=== PATIENT | male | born 1965 | race Caucasian/White ===

== ENCOUNTER → 2019-05-05 10:27 | Outpatient (CLI) | payer OTHER, SELFPAY ==
--- NOTE | 2019-05-05 | DI.MRI.S_ITS ---
PROCEDURE: MR LUMBAR SPINE WO CON INDICATIONS: low back pain TECHNIQUE: Noncontrast sagittal T1 spin echo and T2 fast echo, sagittal STIR, axial T1 and T2 fast spin echo through the lumbar spine. In cases with scoliosis, additional coronal T2 fast spin echo may be performed. COMPARISON: [facility] [place], CR, XR LUMBAR SPINE 2 OR 3 VIEWS, 04/24/2019, 8:52. FINDINGS: Image quality: Excellent. Alignment and Curvature: There is normal bony alignment. Bones: Postsurgical changes compatible prior left L5-S1 laminotomy. Mild reactive endplate changes noted adjacent to the L2-L3, L4-L5 and L5-S1 discs. No acute vertebral body compression fractures. Spinal Cord: Conus medullaris terminates at the L2 level. Visualized cord demonstrates normal signal and size. Paraspinous Soft Tissues: No paravertebral masses. L1-L2: Normal appearance. L2-L3: Loss of disc signal. Mild, diffuse disc bulge. Mild bilateral facet hypertrophy. Mild narrowing of the central canal. Mild bilateral neural foraminal narrowing. No neural compression. L3-L4: Loss of disc signal. Mild, diffuse disc bulge. Mild bilateral facet hypertrophy. Mild narrowing of the central canal. Mild to moderate bilateral neural foraminal narrowing. No neural compression. Fissures noted in the disc annulus. L4-L5: Loss of disc signal and slight loss of disc height. Mild to moderate diffuse disc bulge. Mild bilateral facet hypertrophy. Mild to moderate narrowing of the central canal. Mild to moderate bilateral neural foraminal narrowing. No neural compression Fissures are noted in the posterior disc annulus. L5-S1: Loss of disc signal and height. Mild, diffuse disc bulge. Mild bilateral facet hypertrophy. Small 5 mm left facet synovial cyst. No central stenosis. Mild bilateral neural foraminal narrowing. No neural compression. Fissure noted in the posterior left annulus. IMPRESSION: 1. Postsurgical changes. 2. Multilevel degenerative disease 3. Multilevel facet arthropathy. 4. Mild to moderate L4-L5 central canal narrowing. Mild L2-L3 and L3-L4 central canal narrowing. 5. Mild to moderate bilateral L3-L4 and L4-L5 neural foraminal narrowing. Mild bilateral L2-L3 and L5-S1 neural foraminal narrowing. 6. No neural compression. Dictated by: Miladis Negro MD, PhD on 05/07/2019 at 11:27 Approved by: Miladis Negro MD, PhD on 05/07/2019 at 11:54
== END ==
PROVIDERS: Visit Provider Orthopaedic Surgery Orthopaedic Surgery of the Spine
DX: M54.5 Low back pain (principal); M51.36 Other intervertebral disc degeneration, lumbar region; M51.37 Other intervertebral disc degeneration, lumbosacral region; M47.816 Spondylosis without myelopathy or radiculopathy, lumbar region; M47.817 Spondylosis without myelopathy or radiculopathy, lumbosacral region; M48.061 Spinal stenosis, lumbar region without neurogenic claudication; M48.07 Spinal stenosis, lumbosacral region
CPT/HCPCS: 72148

== ENCOUNTER → 2019-06-04 12:11 | Outpatient (CLI) | payer OTHER, SELFPAY ==
[2019-06-04 13:47] LABS: Add Manual Diff / Slide Review NO; Basophils Absolute Auto 100 /uL (0-100); Basophils Percent Auto 0.6 % (0-2); Eosinophils Absolute Auto 200 /uL (0-450); Eosinophils Percent Auto 2.2 % (2-4); Hematocrit 45.7 % (41-53); Hemoglobin 15.7 g/dL (13.5-17.5); Lymphocytes Absolute Auto 3200 /uL (1100-4500); Lymphocytes Percent Auto 34.1 % (25-40); Mean Corpuscular HGB Conc 34.5 % (30-36); Mean Corpuscular Hemoglobin 30.4 PG (26-34); Mean Corpuscular Volume 88.2 fL (80-100); Monocytes Absolute Auto 700 /uL (0-900); Monocytes Percent Auto 7.7 % (3-14); Neutrophils Absolute Auto 5100 /uL (1500-7000); Neutrophils Percent Auto 55.4 % (50-75); Platelet Count 299 X10^3/uL (150-400); Red Blood Cell Count 5.18 X10^6/uL (4.5-5.9); White Blood Cell Count 9.3 X10^3/uL (4.5-11.0)
[2019-06-04 13:56] LABS: BUN Creatinine Ratio 13.3 (6-22); Blood Urea Nitrogen 12 mg/dL (9-20); Calcium 9.7 mg/dL (8.4-10.2); Carbon Dioxide 24 mmol/L (22-32); Chloride 104 mmol/L (98-107); Estimated Glomerular Filt Rate > 60.0 mL/min (>60); Glucose 110 mg/dL (70-100); HEMOLYSIS < 15 (0-50); Potassium 4.1 mmol/L (3.4-5.1); Sodium 139 mmol/L (137-145)
== END ==
PROVIDERS: PCP Internal Medicine; Visit Provider Orthopaedic Surgery Orthopaedic Surgery of the Spine
DX: Z01.812 Encounter for preprocedural laboratory examination (principal)
CPT/HCPCS: 36415; 80048; 85025; 93005

== ENCOUNTER 2019-07-18 07:25 | Inpatient (IN) | payer OTHER, MEDICAID, SELFPAY ==
[2019-07-04 09:55] VITALS: BMI 29.5
[2019-07-18] VITALS (14 sets, daily range): BP systolic 108–162; BP diastolic 62–99; PULSE 16–94; RESP 12–20; TEMP 36.4–37.1; O2SAT 94–100; BMI 29.5
--- NOTE | 2019-07-18 | DI.RAD.S_ITS ---
PROCEDURE: XR LUMBAR SPINE 2-3V INDICATIONS: L4-5, L5-S1 TLIF TECHNIQUE: 2 views of the lumbar spine were acquired. COMPARISON: [facility], MR, MR LUMBAR SPINE WO CON, 05/05/2019, 11:07. [facility], CR, XR LUMBAR SPINE 2 OR 3 VIEWS, 04/24/2019, 8:52. FINDINGS: 2 intraoperative fluoroscopy images demonstrate discectomy, laminectomy and posterior fusion at L4-L5 and L5-S1. Surgical hardware are in expected position. IMPRESSION: Discectomy, laminectomy and posterior fusion at L4-L5 and L5-S1. Dictated by: Luc Sandhu M.D. on 07/18/2019 at 13:31 Approved by: Luc Sandhu M.D. on 07/18/2019 at 13:33
[2019-07-18] MEDS: LACTATED RINGERS 1,000 ML 42 ML IV (08:14)
[2019-07-18] MEDS: CEFAZOLIN 2 GM/100 ML FROZ.PIGGY IV ×3 (08:47→20:16)
--- NOTE | 2019-07-18 09:50 | SUR.OPER ---
Prone on spine table, head in foam head support, padded chest and pelvic supports, gel pad at knees, lower legs supported by pillows; nipples, genitalia and toes free of pressure, arms secured on foam padded arm boards at <90 degrees abduction. Tape over blanket at thigh secured to table.
[2019-07-18] MEDS: BUPIVACAINE LIPOSOME 266 MG/20 ML VIAL INJ (10:01)
[2019-07-18] MEDS: BUPIVACAINE 0.25% W/ EPI (PF) 10 ML VIAL 20 ML INJ (10:02)
[2019-07-18] MEDS: ACETAMINOPHEN IV 1,000 MG/100 ML VIAL 400 MG IV (12:12)
--- NOTE | 2019-07-18 12:50 | PM.OP.1 ---
Operative Date/Time/Diagnoses Date of procedure: 07/18/19 Time of procedure: 08:50 Pre-op diagnosis: 1. L4-5, L5-S1 spinal stenosis with hx of lainectomies 2. L4-5, L5-S1 spondylosis with radiculopathy Post-op diagnosis: same Procedure & Clinicians Procedure: 1. L4-5, L5-S1 Postero-lateral and posterior interbody fusion 2. L4-5, L5-S1 interbody cage placement. 3. L4-5, L5-S1 decompressive laminectomy with bilateral facetecomies 4. L4-5, L5-S1 Posterior segmental instrumentation 5. [place] of bone marrow from iliac crest 6. Utilization of microsurgical technique and operating microscope Same procedure as scheduled: Yes Indications: Patient has been having chronic back pain and worsening lumbar radiculopathy. Patient failed multiple conservative management with worsening pain weakness and numbness in her lower extremity. Patient has been having difficulty performing activity of daily living. After discussing risks benefits of treatment options, patient elected proceed with surgery. Surgeon: Hans Molina Employee Communications Specialist: Cherie Mitchell Click Yes if Unassisted: No Anesthesia Type: General Operative Notes Closure Type: primary Specimen(s): none sent Prosthetic devices, grafts, tissues, transplants, or devices: Globus revolve screws, Rise cages Applied: catheter Estimated Blood Loss (mL): 150 Blood products transfused: none Procedure in detail: Patient was seen in the preoperative area. Risks and benefits of the surgery was discussed with the patient. Informed consent was obtained from the patient and placed in the chart. Surgical site was marked. Patient was taken to the operative room. General anesthesia was administered. Prophylactic antibiotic was given to the patient less than 30 min before the incision was made. Patient was placed into a prone position on the Sheng table. Patient's back was then prepped and draped in the sterile fashion. Time-out was performed at this time. Using AP and lateral C-arm imaging the interval between L4-S1 was identified and marked on patient's back. A 2 inch incision 2 in from midline was made on the left side first. The fascia was incised in line with skin incision. Globus MARS retractors was placed inside the incision and docked onto the L4 and L5 lamina. Using microsurgical technique and operating microscope, a L4 and L5 laminectomy and L4-5 L5-S1 facetectomy was performed using a Kerrison rongeur. During the process of decompression more than 75% of bilateral L4-5 L5-S1 facets were removed in order to decompress the spinal canal and the lateral recess. The L4-5 L5-S1 level was grossly unstable after the decompression was completed and requiring the fusion procedure. Patient was found have significant amount of epidural scarring which was carefully resected along with osteophytes herniated disc in the process of decompression. After the laminectomy facetectomy and debridement of scar tissue was completed the epidural space at L4-5 L5-S1 was fully decompressed. The disc space at L4-5, L5-S1 was identified. And a total diskectomy was performed at L4-5, L5-S1 level. The endplates were decorticated using a rasp and shaver. The total diskectomy and decortication was performed at L4-5, L5-S1 level in order to to accomplish a L4-5, L5-S1 fusion. The local bone from the laminectomy and facetectomy was saved for local bone grafting. After the total diskectomy and decortication was completed, Bio4 bone graft material was combined with local bone that was harvested earlier. At this time, a separate skin is incision was made over the iliac crest. A Jamshidi needle was inserted into the iliac crest through a separate skin incision. 5 cc of bone marrow aspiration was obtained through the separate skin incision using a Jamshidi needle from the iliac crest. The bone marrow aspiration was combined with local bone and the Bio4 bone grafting material. The bone grafting material was placed into the L4-5, L5-S1 interbody space along with two cages, one expandable cage at each level. The cages were expanded to their maximum height using the torque limiting screwdriver. At this time a mirror image incision was made on the right side. The fascia was incised in line with the skin incision. Globus MARS retractor was inserted and docked onto the L4-5, L5-S1 posterolateral gutter. Using the power drill, posterior-lateral decortication was performed at L4-5, L5-S1 level until bleeding cortical bone was identified. The remaining bone grafting material was placed into the L4-5 L5-S1 posterior lateral gutter he order to accomplish posterolateral fusion at the L4-5 L5-S1 levels. Using the double C-arm technique, pedicle screws were placed into the L4, L5, S1 pedicles bilaterally. This was done by placing the Jamshidi needle into the pedicles, then placing the guidewires over the Jamshidi needle, and finally placing the cannulated screws over the guidewires bilaterally. After the pedicle screws were placed, 2 titanium rods was locked into the heads of the pedicle screws using locking caps and torque limiting screwdriver. Total 6 pedicles screws were placed. After all the hardware was placed, and confirmed with AP and lateral C-arm imaging, the wound was then irrigated with sterile normal saline and packed with Ray-Sonia gauze for 3 min to accomplish hemostasis. After the gauze was removed the deep fascia was closed with #1 Vicryl suture. The subcutaneous layer was closed with 2-0 Vicryl. The skin was closed with skin delmis. Patient tolerated the procedure well. There were no complications.
--- NOTE | 2019-07-18 12:56 | PM.PREOP ---
Pre-operative Note Interval Note History & Physical reviewed/Exam performed by Physician: Yes Changes to H&P: No
[2019-07-18] MEDS: LORazepam 2 MG/ML INJ 0.5 MG IV (13:18)
--- NOTE | 2019-07-18 13:34 | SUR.PHASEI ---
Patient arrived in PACU with an oral airway. Placed [address] Joiner at bedside gave additional IV pain medication.
[2019-07-18] MEDS: HYDROMORPHONE 2 MG INJ IV (13:40)
--- NOTE | 2019-07-18 13:42 | SUR.PHASEI ---
Patient crying and c\o 03/24 pain. Gave additional pain medication.
--- NOTE | 2019-07-18 15:04 | PT.IIE ---
Current Diagnoses Other spondylosis with radiculopathy, lumbosacral region (07/18/19) Spinal stenosis, lumbar region without neurogenic claudication (07/18/19) Postlaminectomy syndrome, not elsewhere classified (07/18/19) Surgery Performed Operation Date: 07/18/19 08:45 Actual Procedures p L4-5, L5-S1 TLIF w/ posterior instrumentation - Hans Molina MD Surgical History (Last Updated 07/04/19 @ 10:10 by Gina Elizalde RN) H/O abdominal surgery (Acute) History of lumbar surgery (Acute) Medical History (Last Updated 07/04/19 @ 10:10 by Gina Elizalde RN) Arthritis (Acute) Edema (Acute) HTN (hypertension) (Acute) Numbness and tingling (Acute) Sciatica (Acute) Physical Therapy Inpatient Evaluation/Re-Eval M1 PT/OT-IP Prior Functional Status Start: 07/18/19 15:57 Freq: NEEDED Status: Active Protocol: Document 07/18/19 15:04 AB (Rec: 07/18/19 16:16 AB [id number]) Medical Review Prior Functional Status Medical History Reviewed Yes Communication able to make needs known Mobility and Gait pt stated that he is independent with all mobilities and ambulation usually without AD but occasionally uses a SPC depending on pain level. Social History Household Members spouse,family Living Arrangements House Number of Floors (Floors) One Floor Number of Stairs To Enter/Railing? 1 step to enter Home Environment Standard Height Toilet,Tub/ Shower Home Equipment Straight Cane,Grab Bars Near Toilet Additional Social History Comment pt lives with his spouse and mother. son staying with pt to assist him at home. M2 PT-IP Current Condition Start: 07/18/19 15:57 Freq: NEEDED Status: Active Protocol: Document 07/18/19 15:04 AB (Rec: 07/18/19 16:16 AB [id number]) Physical Therapy Current Condition Current Condition Evaluation Date 07/18/19 Treatment Diagnosis s/p L4-S1 fusion/lami; difficulty in walking Onset Date 07/18/19 Precautions Lumbar Precautions Log Roll,No Twisting,Limit Bending,Lifting Restriction of 10 lbs,Gait Belt above Incisional Area M3 PT-IP Subjective Start: 07/18/19 15:57 Freq: NEEDED Status: Active Protocol: Document 07/18/19 15:04 AB (Rec: 07/18/19 16:16 AB [id number]) Subjective Physical Therapy Visit Type Type Initial Evaluation Visit Start Time 15:04 Visit Stop Time 15:45 Total Visit Minutes 41 Number of GENERAL ASSEMBLER INSTALLER Visits 0 Physical Therapy Visit Comments Patient Comments c/o 8/10 pain but pt wants to get up Therapy Pain Assessment Pain When Pain Assessed At Rest Pain Present Pain Present Pain Reported Location back Intensity 8 Scale Used stated pain of more than 10 during mobility Pain Management Techniques Apply Cold,Re-positioning M4 PT-IP Mobility and Gait Start: 07/18/19 15:57 Freq: NEEDED Status: Active Protocol: Document 07/18/19 15:04 AB (Rec: 07/18/19 16:16 AB [id number]) PT-Bed Mobility Assessment Rolling Type of Rolling Log Rolling Level of Assist Moderate Assistance,1 Person Assistance Supine to Sit Supine to Sit Minimal Assistance,Moderate Assistance,Bedrails Scooting Scooting to Edge of Bed Standby Assistance PT-Transfer Assessment Sit to and From Stand Sit to and from Stand Maximum Assistance,2 Person Assistance,Use of Upper Extremities Equipment Transfer Assistive Device Gait Belt,Front Wheeled Walker Orthotic/Prosthetic Devices or Brace: No Comments Mobility Comments checked on pt and pt wants to get up from the bed due to increase pain. educated pt on back precautions and log roll bed mobility. pt's family in room with pt. pt completed log roll supine to sit min to mod A and max cues. pt was able to sit on EOB SBA. (+) shoulder shaking with c/o increase pain but pt insistented on staying up and to stand. completed sit to stand max A x 2 and max cues. required 3 attempts prior to successfully got to upright position. pt was able to stand max A x 1-2 and max cues . stated that back pain is betting with standing. instructed pt to take side steps towards HOB and completed ~ 3 steps using FWW max A x 1-2 and max cues. required max A to stabilize L knee to prevent from buckling. assisted pt stand to sit max A x 1-2 for controlled descent. pt wants to stay seated on EOB. positioned pt with table in front and call light next to him. bed alarm on. informed nurse regarding pt sitting on EOB. left pt with family in room. Gait Assessment Gait Gait Assistance Required: Maximum Assistance,1 Person Assist,2 Person Assist Distance (Feet) 2 Able to Maintain Weight Bearing Status Yes During Gait Assistive Devices Assistive Device Gait Belt,Front Wheeled Walker Orthotic/Prosthetic Devices or Brace: No Gait Deviations General Gait Pattern Antalgic,Decreased Stride Length,Decreased Feet Clearance Factors Limiting Gait Function Factors Limiting Gait Function Decreased Activity Tolerance, Decreased Sensation,Decreased Strength,Limited Range of Motion,Pain,Poor Balance,Poor Safety Awareness Comments Gait Comments pls refer to mobility section for details PT-Balance Assessment Sitting Balance and Reactions Static Sitting Balance Ability Good Dynamic Sitting Balance Ability Good Standing Balance and Reactions Static Standing Balance Ability Poor Dynamic Standing Balance Ability Poor Device Used FWW M5 PT-IP Objective Assessments Start: 07/18/19 15:57 Freq: NEEDED Status: Active Protocol: Document 07/18/19 15:04 AB (Rec: 07/18/19 16:16 AB [id number]) Orientation Orientation/Cognition Level of Alertness Alert Orientation Name,Age,Birthday,Date,Place, Situation Language Function Ability No Deficits Noted Safety Awareness Decreased Safety Awareness Gross Range of Motion Lower Extremity ROM Impairments increase BLE muscle guarding on BLE during PROM L>R with pain limiting further movement on BLE Strength Lower Extremity Strength Assessment Bilaterally Impaired Comments Strength Comments RLE: 3+/5 LLE: 2+/5 Coordination Assessment Gross Coordination Gross Coordination WNL Sensation Assessment Sensation Light Touch Impaired Sensation Description Numbness,Tingling Comments Sensation Comments stated chronic numbness/ tingling on BLE L>R Muscle Tone Muscle Tone WNL Yes M6 PT-IP Treatment Start: 07/18/19 15:57 Freq: NEEDED Status: Active Protocol: Document 07/18/19 15:04 AB (Rec: 07/18/19 16:16 AB [id number]) Physical Therapy Treatment Education Education Provided Precautions,Weight Bearing Status,Post-Op Packet,Safety M7 PT-IP Assessment and Plan Start: 07/18/19 15:57 Freq: NEEDED Status: Active Protocol: Document 07/18/19 15:04 AB (Rec: 07/18/19 16:16 AB [id number]) PT Summary Assessment and Plan Potential Rehabilitation Potential Good Status of Condition at Evaluation Evolving Summary Impairments Pain,ROM,Strength,Balance, Coordination,Sensation,Tone, Bed Mobility,Transfers,Gait, Activity Tolerance Assessment Summary pt requiring 2 person assist at this time with c/o increase pain with mobility. d/c plan depending on progress and on pain control for pt to be able to move and tolerate more mobility. pt plans to go home with spouse and son assist him but at this time may require SNF rehab. will have to assess further to determine progress and safe d/c plan. Goals Bed Mobility Goal Standby Assistance Transfer Goal Standby Assistance,Front Wheeled Walker Gait Goal Standby Assistance,Front Wheel Walker Gait Distance 200 Other Goals up/down 1 step using FWW SBA Days to Meet Goals 5 Frequency of Treatment Frequency Of Treatment Twice a Day Treatment Plan Physical Therapy Treatment Plan Bed Mobility Training,Transfer Training,Gait Training, Therapeutic Exercise,Balance Retraining,Post Op Education, Discharge Planning,Hot or Cold Pack,Neuromuscular Re-ed, Coordination Retraining,Manual Therapy Other Recommendations and Next Treatment ambulation, bed mobility, Focus stair training if appropriate Recommendations To Nursing Amount of Assist Needed 2 Person Assist Discharge Recommendations PT Discharge Recommendations SNF Rehab,Outpatient PT Other Discharge Recommendations depending on progress: SNF vs home with 07/03 and homehealth PT/outpt PT Equipment Needed for Home Before FWW Discharge
--- NOTE | 2019-07-18 15:34 | PC.NURSE ---
Pt admitted to room 218 from pacu at 1415. Dressing to lower back is cdi with gauze in place. He is A&Ox3 and denies pain at this time. Pt is a smoker and needs to have a nicotine patch ordered. Fax sent to Dr.LU sanchez in surgery. Report given to LEMUEL MADRID. He is visting with family at this time.
[2019-07-18] MEDS: OXYCODONE/ACETAMINOPHEN 5/325 TABLET 2 TAB PO ×2 (15:42→20:16)
[2019-07-18] MEDS: hydrOXYzine pamoate 25 MG CAPSULE PO ×2 (15:42→20:16)
[2019-07-18] MEDS: HYDROMORPHONE 1 MG INJ 0.5 MG IV ×2 (19:07→23:47)
[2019-07-18] MEDS: DOCUSATE 100 MG CAPSULE PO (20:16)
[2019-07-18] MEDS: SENNOSIDES 8.6 MG TABLET 17.2 MG PO (20:16)
[2019-07-19] MEDS: hydrOXYzine pamoate 25 MG CAPSULE PO (00:20)
[2019-07-19] MEDS: OXYCODONE/ACETAMINOPHEN 5/325 TABLET 2 TAB PO ×2 (00:20→04:22)
[2019-07-19] MEDS: HYDROMORPHONE 1 MG INJ 0.5 MG IV ×2 (03:39→07:03)
[2019-07-19 04:28] VITALS: BP 132/90; PULSE 78; RESP 16; TEMP 37.2; O2SAT 93
[2019-07-19] MEDS: CEFAZOLIN 2 GM/100 ML FROZ.PIGGY IV (04:53)
[2019-07-19 06:11] LABS: Hematocrit 39.4 % (41-53); Hemoglobin 13.4 g/dL (13.5-17.5)
[2019-07-19 07:30] VITALS: BP 153/78; PULSE 70; RESP 16; TEMP 36.9; O2SAT 96
--- NOTE | 2019-07-19 09:20 | PT.IPTN ---
Current Diagnoses Other spondylosis with radiculopathy, lumbosacral region (07/18/19) Spinal stenosis, lumbar region without neurogenic claudication (07/18/19) Postlaminectomy syndrome, not elsewhere classified (07/18/19) Surgery Performed Operation Date: 07/18/19 08:45 Actual Procedures p L4-5, L5-S1 TLIF w/ posterior instrumentation - Hans Molina MD Physical Therapy Treatment Note M2 PT-IP Current Condition Start: 07/18/19 15:57 Freq: NEEDED Status: Active Protocol: Document 07/18/19 15:04 AB (Rec: 07/18/19 16:16 AB [id number]) Physical Therapy Current Condition Current Condition Evaluation Date 07/18/19 Treatment Diagnosis s/p L4-S1 fusion/lami; difficulty in walking Onset Date 07/18/19 Precautions Lumbar Precautions Log Roll,No Twisting,Limit Bending,Lifting Restriction of 10 lbs,Gait Belt above Incisional Area M3 PT-IP Subjective Start: 07/18/19 15:57 Freq: NEEDED Status: Active Protocol: Document 07/19/19 09:00 SP (Rec: 07/19/19 09:33 SP [id number]) Subjective Physical Therapy Visit Type Type Treatment Note Visit Start Time 09:00 Visit Stop Time 09:20 Total Visit Minutes 20 Number of DRAWER IN Visits 1 Physical Therapy Visit Comments Patient Comments Pt c/o 7/10 pain pre PT, did not take all pain meds offered but wants to get up and move around to go home. Therapy Pain Assessment Pain When Pain Assessed At Rest Pain Present Pain Present Pain Reported Location back Intensity 7 Scale Used Numeric (1 - 10) Pain Management Techniques Apply Cold,Re-positioning, Timing of Activity with Medications M4 PT-IP Mobility and Gait Start: 07/18/19 15:57 Freq: NEEDED Status: Active Protocol: Document 07/19/19 09:00 SP (Rec: 07/19/19 09:33 SP [id number]) PT-Bed Mobility Assessment Rolling Type of Rolling Log Rolling Level of Assist Standby Assistance Supine to Sit Supine to Sit Standby Assistance,Head of Bed Elevated,Bedrails Sit to Supine Sit to Supine Standby Assistance,Head of Bed Elevated,Bedrails Scooting Scooting to Edge of Bed Standby Assistance Scooting Up and Down in Bed Standby Assistance PT-Transfer Assessment Sit to and From Stand Sit to and from Stand Contact Guard Assistance,Use of Upper Extremities Equipment Transfer Assistive Device Bed Rail,Front Wheeled Walker Orthotic/Prosthetic Devices or Brace: No Transfers Transfer Destination Bed,Chair,Wheelchair Transfer Technique Pt ambulated with FWW. Transfer Ability Level of Assist Contact Guard Assistance,Use of Upper Extremities Comments Mobility Comments Pt was able to complete supine <> sitting with HOB elevated and use of bed rails with good safety precautions log roll SBA. Pt completed sit to stand from BSC using BUE and good trunk alignment CGA and step pivot transfer using FWW heavy support BUE initially then decreased. Pt performed 3 transfers in/out BSC, EOB, in/ out w/c CGA with stationary stance for recovery time with reported pain. Pt stated did not take all pain meds offered with 7/10 LBP at rest and 8-9 /10 with mobility. I want to move around. Pt required cues for awareness of of not trunk rotation to R during RUE WB on chair arm and LUE on R FWW handle with verbal understanding and self corrected after cues. Pt was sitting in chair with all needs within reach when left. Gait Assessment Gait Gait Assistance Required: Contact Guard Assist Distance (Feet) 100 Able to Maintain Weight Bearing Status Yes During Gait Assistive Devices Assistive Device Gait Belt,Front Wheeled Walker Orthotic/Prosthetic Devices or Brace: No Gait Deviations General Gait Pattern Antalgic,Decreased Stride Length,Decreased Feet Clearance,Narrow Based Gait Factors Limiting Gait Function Factors Limiting Gait Function Decreased Activity Tolerance, Decreased Sensation,Decreased Strength,Limited Range of Motion,Pain,Poor Balance,Poor Safety Awareness Comments Gait Comments Pt was able to increase distance with ambulation 100 ft and 70 ft using fWW CGA to SBA with initial step to gait patterning and heavy WB BUE on FWW but as distance progressed was able to perform step over step with Mod BUE support on FWW. Pt required w/ c trailing distance for secondary to decreased strength and reported not good sensation in LLE during WB it has has been like this for a long time. Stair Climbing Assessment Evaluation Level of Assist On Stairs Contact Guard Assistance,1 Person Assistance Devices Stair Climbing Assistive Devices Front Wheel Walker Technique/Endurance Stair Climbing Direction Ascend and Descend Number of Steps Climbed 1 Stair Climbing Set # Repetitions (reps) 1 Comments Stair Climbing Comments Pt was able to complete 1 step management using FWW requiring CGA, no LOB or deviation. PT-Balance Assessment Sitting Balance and Reactions Static Sitting Balance Ability Good Dynamic Sitting Balance Ability Good Standing Balance and Reactions Static Standing Balance Ability Good Dynamic Standing Balance Ability Fair Device Used FWW M5 PT-IP Objective Assessments Start: 07/18/19 15:57 Freq: NEEDED Status: Active Protocol: Document 07/18/19 15:04 AB (Rec: 07/18/19 16:16 AB [id number]) Orientation Orientation/Cognition Level of Alertness Alert Orientation Name,Age,Birthday,Date,Place, Situation Language Function Ability No Deficits Noted Safety Awareness Decreased Safety Awareness Gross Range of Motion Lower Extremity ROM Impairments increase BLE muscle guarding on BLE during PROM L>R with pain limiting further movement on BLE Strength Lower Extremity Strength Assessment Bilaterally Impaired Comments Strength Comments RLE: 3+/5 LLE: 2+/5 Coordination Assessment Gross Coordination Gross Coordination WNL Sensation Assessment Sensation Light Touch Impaired Sensation Description Numbness,Tingling Comments Sensation Comments stated chronic numbness/ tingling on BLE L>R Muscle Tone Muscle Tone WNL Yes M6 PT-IP Treatment Start: 07/18/19 15:57 Freq: NEEDED Status: Active Protocol: Document 07/19/19 09:00 SP (Rec: 07/19/19 09:33 SP [id number]) Physical Therapy Treatment Education Education Provided Precautions,Weight Bearing Status,Post-Op Packet,Safety M7 PT-IP Assessment and Plan Start: 07/18/19 15:57 Freq: NEEDED Status: Active Protocol: Document 07/19/19 09:00 SP (Rec: 07/19/19 09:33 SP [id number]) PT Summary Assessment and Plan Potential Rehabilitation Potential Good Status of Condition at Evaluation Evolving Summary Impairments Pain,ROM,Strength,Balance, Coordination,Sensation,Tone, Bed Mobility,Transfers,Gait, Activity Tolerance Assessment Summary Pt required SBA to CGA during all mobility including BM, transfers, gait and stair mgt while using FWW for support. Pt my go home when medicall stable. His is available for support. Recommend outpatient PT to further progress in strength and independence. Goals Bed Mobility Goal Standby Assistance Transfer Goal Standby Assistance,Front Wheeled Walker Gait Goal Standby Assistance,Front Wheel Walker Gait Distance 200 Other Goals up/down 1 step using FWW SBA Days to Meet Goals 5 Frequency of Treatment Frequency Of Treatment Twice a Day Treatment Plan Physical Therapy Treatment Plan Bed Mobility Training,Transfer Training,Gait Training, Therapeutic Exercise,Balance Retraining,Post Op Education, Discharge Planning,Hot or Cold Pack,Neuromuscular Re-ed, Coordination Retraining,Manual Therapy Other Recommendations and Next Treatment ambulation, bed mobility, Focus stair training if appropriate Recommendations To Nursing Amount of Assist Needed 1 Person Assist Discharge Recommendations PT Discharge Recommendations Outpatient PT Other Discharge Recommendations Outpt PT Equipment Needed for Home Before FWW (has one at home) Discharge
--- NOTE | 2019-07-19 09:38 | OT.IP.EVAL ---
Current Diagnoses Other spondylosis with radiculopathy, lumbosacral region (07/18/19) Spinal stenosis, lumbar region without neurogenic claudication (07/18/19) Postlaminectomy syndrome, not elsewhere classified (07/18/19) Surgery Performed Operation Date: 07/18/19 08:45 Actual Procedures p L4-5, L5-S1 TLIF w/ posterior instrumentation - Hans Molina MD Past Medical History (Last Updated 07/04/19 @ 10:10 by Gina Elizalde RN) Arthritis (Acute) Edema (Acute) HTN (hypertension) (Acute) Numbness and tingling (Acute) Sciatica (Acute) Surgical History (Last Updated 07/04/19 @ 10:10 by Gina Elizalde RN) H/O abdominal surgery (Acute) History of lumbar surgery (Acute) Occupational Therapy Inpatient Evaluation/Re-Eval M1 PT/OT-IP Prior Functional Status Start: 07/18/19 15:57 Freq: NEEDED Status: Active Protocol: Document 07/19/19 09:38 PJM (Rec: 07/19/19 10:52 PJM [id number]) Medical Review Prior Functional Status Medical History Reviewed Yes Diet/Fluid Consistency Regular Communication WNL Mobility and Gait Pt stated that he is independent with all mobility and ambulation usually without AD but occasionally uses a SPC depending on pain level. Pt reports standing tolerance limited to 10 min due to LBP. Activities of Daily Living and IADL's Pt states he was independent with self care, except sometimes assisted him with socks. Pt does cooking and cleaning, but has been unable to do this recently due to increased LBP. Pt drives. Prior Functional Level (Other details) Pt states he is on disability and has not worked for more than 10 yrs. Social History Household Members spouse,family Living Arrangements House Number of Floors (Floors) One Floor Number of Stairs To Enter/Railing? 1 step to enter Home Environment High Toilet,Tub/Shower Home Equipment Straight Cane,Grab Bars Near Toilet Employment Status Unemployed Additional Social History Comment Pt lives with his spouse (who works) and mother. Son staying with pt to assist him for a few days while at work. M2 OT-IP Current Condition Start: 07/19/19 08:45 Freq: Status: Active Protocol: Document 07/19/19 09:38 PJM (Rec: 07/19/19 10:52 PJ [id number]) Occupational Therapy Current Condition Current Condition Evaluation Date 07/19/19 Treatment Diagnosis decr'd self care s/p L4-5, L5- S1 TLIF Diagnosis Onset Date 07/18/19 Post Operative Precautions Lumbar Precautions Log Roll,No Twisting,Limit Bending,Lifting Restriction of 10 lbs,Gait Belt above Incisional Area M3 OT- IP Subjective and Pain Start: 07/19/19 08:45 Freq: Status: Active Protocol: Document 07/19/19 09:38 PJM (Rec: 07/19/19 10:52 PJ [id number]) OT- Subjective Occupational Therapy Visit Type Type Initial Evaluation Visit Start Time 09:20 Visit Stop Time 09:38 Total Visit Minutes 18 Notes bringing pt's clothes. Pt anxious to d/c this AM. Occupational Therapy Visit Comments Patient Comments When can I go home? Patient/Caregiver Goals to have less pain and be more active at home OT Pain Assessment Pain When Pain Assessed At Rest Location back Intensity 7 Scale Used pt reports L anterior/ posterior thigh numbness Description Aching,Acute M4 OT- IP ADL's Start: 07/19/19 08:45 Freq: Status: Active Protocol: Document 07/19/19 09:38 PJM (Rec: 07/19/19 10:52 [facility] [id number]) OT [id number]-[id number] General Evaluation Self-Feeding Ability Independent OT ADL-Grooming General Evaluation Grooming Ability Independent Comments OT Grooming Comments provided education re: body mechanics OT ADL-Oral Care General Eval Oral Care Ability Independent Areas of Assistance Managing Dentures Comments Oral Care Comments provided education re: body mechanics OT ADL-Dressing General Eval Upper Body Dressing Ability Independent Lower Body Dressing Ability Minimal Assistance Areas Needing Assistance Pants/Shorts,Socks Assistive Devices Dressing Assistive Devices Long Handled Shoe Horn,Freight Unloader Comments OT Dressing Comments Pt has long shoe horn and reception specialist and is familiar with their use from 2 previous back surgeries. Pt donned pants with SBA with reception specialist today. Pt doffed socks independently with reception specialist. Pt declines sock aid; prefers to assist. Pt wears slip on shoes. OT ADL-Toileting General Evaluation Toileting Ability Independent Comments OT Toileting Comments provided education re: body mechanics OT ADL-Bathing Comments OT Bathing Comments pt declined; provided education re: body mechanics; to assist PRN M5 OT- IP IADL's Start: 07/19/19 08:45 Freq: Status: Active Protocol: Document 07/19/19 09:38 PJM (Rec: 07/19/19 10:52 [facility] [id number]) OT-Instrumental Activities of Daily Living Deficits IADL Deficits Identified Deficits Home Safety Awareness Awareness of Need for Assistance at Home Good Awareness Ability to Problem Solve Emergency Able to Problem Solve Situations Medication Management Medication Management No Deficits Identified Money Management Money Management No Deficits Identified Meal Preparation Meal Preparation Comments /son to assist PRN Pcb Designer Pcb Designer Comments /son to assist PRN Driving Driving Comments /son to assist PRN M6 OT- IP Functional Cognition Start: 07/19/19 08:45 Freq: Status: Active Protocol: Document 07/19/19 09:38 PJM (Rec: 07/19/19 10:52 [facility] [id number]) Cognitive Factors Limiting Selfcare Function Cognitive Ability Level of Alertness Alert Patient Orientation Name,Age,Birthday,Month,Date, Year,Day of Week,Place, Situation Attention Span Ability Capable of Focused Attention, Capable of Sustained Attention Ability to Follow Commands Able to Follow One Step Commands Memory Description No Deficits Noted Cognitive Comments Cognitive Assessment Comments Pt recalls 3/3 lumbar spine precautions. Pt needs occasional cues to avoid twisting; tends to move quickly. OT- Vision and Hearing OT- Hearing Assessment OT- Hearing Assessment WFL M7 OT- IP Mobility and Balance Start: 07/19/19 08:45 Freq: Status: Active Protocol: Document 07/19/19 09:38 PJ (Rec: 07/19/19 10:52 [facility] [id number]) OT-Transfer Assessment Sit to and From Stand Sit to and from Stand Standby Assistance Transfers Transfer Ability Standby Assistance Technique Transfer Destination Chair Transfer Technique Stand Step Pivot Devices Transfer Assistive Devices Front Wheeled Walker OT- Gait Assessment Comments Gait Ability Comments pt declined to go to sink or bathroom; P.T. has cleared pt for d/c. See P.T. notes OT- Balance Assessment Sitting Balance and Reactions Static Sitting Balance Ability Good Dynamic Sitting Balance Ability Good Standing Balance and Reactions Static Standing Balance Ability Good Dynamic Standing Balance Ability Good Comments Other Balance Tests/Deviations/Treatment with FWW during LB dressing : M8 OT- IP Objective Assessments Start: 07/19/19 08:45 Freq: Status: Active Protocol: Document 07/19/19 09:38 PJM (Rec: 07/19/19 10:52 PJM [id number]) OT Gross Range of Motion Upper Extremity Range of Motion Assessment Within Functional Limits OT Strength Upper Extremity Strength Assessment Within Functional Limits OT- Coordination Assessment Comments Coordination Comments BUE WFL OT-Muscle Tone Assessment Muscle Tone WNL Yes OT Sensation Assessment Comments Summary Comments Pt denies deficits in BUE's Edema Edema Absent M9 OT- IP Assessment and Plan Start: 07/19/19 08:45 Freq: Status: Active Protocol: Document 07/19/19 09:38 PJM (Rec: 07/19/19 10:52 PJM [id number]) OT Summary Assessment and Plan Potential Rehabilitation Potential Good Analytic Complexity at Evaluation Low Summary Progress Towards Goals Safe For Discharge Assessment Summary Low complexity OT assessment completed on this 54 yr old pt s/p L4-5, L5-S1 TLIF. Pt familiar with precautions and adapted ADL techniques from 2 previous back surgeries and he is anxious to d/c home this AM. Brief review of adapted ADL techniques completed along with lower body dressing practice with reception specialist and sock aid. No further OT services needed. Frequency of Treatment Frequency Of Treatment Discharge Discharge Recommendations OT Discharge Recommendations Home with Assistance Home Equipment Needs pt declines sock aid, has reception specialist and long shoe horn; declines shower seat
--- NOTE | 2019-07-19 10:59 | PC.NURSE ---
Addendum entered by Mica Ferreira R.N. 07/19/19 12:01: Pt stated before he left to go home that he was not having any pain after long acting oxycontin given with oxycodone IR. Pt respirations wnl and pt not groggy from meds. He states that he has taken vicodin correction for the last 11 years and that it never touched his pain. Pt was in good spirits when he left. Down to car Addendum entered by Mica Ferreira R.N. 07/19/19 11:39: Pt given his pain medication and will be discharged soon. His iv has been taken out and he is more at ease now that he has been given something for his comfort. Original Note: Pt agitated this am as he was getting percocet for pain management. He has maxed out on his tylenol order and is unable to have any pain meds. Offered vistaril and pt refused, got angry and told this RN to leave him alone. He also refused his stool softner and lisinopril. States this hospital is no good, I should not have to wait for a Dr to come and see me at 11am. He was given iv dilaudid earlier at 0700. As he is going to be going home we have not given him any iv dilaudid. Just called and he has ordered oxycodone 10mg every 3 hours as needed for pain and to start long acting oxycontin 10mg bid. Will put orders in now and give to patient before he leaves to go home. His iv has been taken out and dressing to lower back changed to coversite. Worked with physical therapy and tolerated well.
[2019-07-19] MEDS: OXYCODONE IR 5 MG TABLET 10 MG PO (11:27)
[2019-07-19] MEDS: OXYCODONE ER 10 MG TAB PO (11:27)
--- NOTE | 2019-07-19 11:44 | PM.DS.1 ---
History of Present Illness History of Present Illness Date Patient Seen: 07/19/19 Time Patient Seen: 11:44 Chief complaint: [id number] Narrative: Patient has been having chronic back pain and worsening lumbar radiculopathy. Patient failed multiple conservative management with worsening pain weakness and numbness in her lower extremity. Patient has been having difficulty performing activity of daily living. After discussing risks benefits of treatment options, patient elected proceed with surgery. POD #1 s/p L4-5, L5-S1 TLIF with Dr. Molina. Patient complains of severe pain in lower back. Patient complains of entire L leg numbness and R leg anterior thigh numbness, had prior to surgery. Nurse talked to Dr. Molina about pain control and pain medication was changed - oxycontin and oxycodone added. Patient was mobilizing with PT. Patient denies fever, chills, chest pain, shortness of breath, urinary/bowel incontinence. Discharge Providers Provider Date of admission: 07/18/19 07:25 Discharge Date: 07/19/19 Primary care physician: Wallace Barnett MD Consults: 07/04/19 10:22 Consult to Respiratory Therapy Evaluate & Treat Comment: INPT 07/18-wants a nicotine patch Physician Instructions: Evaluate and treat 07/18/19 14:42 Consult to Occupational Therapy Evaluate & Treat Comment: Physician Instructions: Evaluate and treat Consult to Physical Therapy Evaluate & Treat Comment: Physician Instructions: Evaluate and Treat 07/18/19 15:32 Consult to Respiratory Therapy Evaluate & Treat Comment: Physician Instructions: Evaluate and treat Discharge provider: Carlos Alberto Singh PA-C Summary Hospital Course Discharge Diagnosis: s/p L4-5, L5-S1 TLIF arthritis edema hypertension numbness and tingling sciatica Hospital Course: Patient admitted to hospital s/p L4-5, L5-S1 TLIF with Dr. Molina. POD #1 patient was ready for discharge home. Hospital course was notable for poor pain control. Nurse discussed pain medication with Dr. Molina. Pain was then managed with oxycontin and oxcodone. Patient was sent home with prescription for oxycontin and oxycodone. Patient was mobilizing with PT prior to discharge. Patient was voiding and eating without difficulty prior to discharge. Status at Discharge Cognitive/behavioral status at discharge: oriented Functional status at discharge: uses cane/walker Overall status at discharge: patient is progressing back to baseline Time Spent with Patient Time spent: Less than 30 minutes Exam Vital Signs (past 8 hours): - 07/19/19 04:28 07/19/19 07:30 Temperature 98.9 F 98.5 F Pulse Rate 78 70 Respiratory Rate 16 16 Blood Pressure 132/90 153/78 H Pulse Oximetry 93 96 Oxygen Delivery Method Room Air Oxygen Flow Rate 0 Narrative Exam Narrative: 54 year old male is sitting comfortably in chair, in no apparent distress. A&Ox3. Dressing CDI on lower back. Sensory function - dullness to light touch in entire L leg and anterior R thigh. Able to actively dorsiflex/plantar flex b/l. Dorsalis pedis 2+ b/l. Objective Labs Result Diagrams: 07/19/19 05:24 Labs: Laboratory Results - last 24 hr 07/19/19 05:24 Hgb 13.4 L Hct 39.4 L Discharge Plan Discharge Plan Patient Disposition: Home Discharge orders & Medications Prescriptions: New oxycodone 5 mg tablet 5 mg PO Q4-6H PRN (Reason: pain (scale score 7-10)) Qty: 25 RF: 0 oxycodone [OxyContin] 10 mg tablet,oral only,ext.rel.12 hr 10 mg PO BID Qty: 28 RF: 0 Continued lisinopril-hydrochlorothiazide 10-12.5 mg Tablet 1 tab PO DAILY RF: 0 Discontinued hydrocodone-acetaminophen 10-325 mg Tablet 1 - 2 tab PO Q4-6H PRN (Reason: Pain) RF: 0 Follow up/Referrals: Wallace Barnett MD [Primary Care Provider] - Hans Molina MD [Physician] - Diet/Activity/Treatments Diet: Regular Activity: No excessive bending, lifting, twisting Cold/Heat Therapy: Continue cold/heat therapy as needed Skin/Wound/Dressing Care Report to your healthcare provider any signs of infection, such as:: chills, fever, increased pain, unusual drainage and unusual redness Dressing: Keep dressing dry. If saturated, contact the office. Visit Report/Discharge Packet Instructions: Oxycodone, DI for Transforaminal Lumbar Interbody Fusion, Oxycodone, Slow Release (By mouth) Stand Alone Forms: Surgery Discharge Discharge Data Primary Care Provider: Wallace Barnett Discharges patient from system. Discharge Date/Time: 07/19/19 12:53 Quality VTE Deep Vein Thrombosis/Pulmonary Embolism Present on Admission: No
== END 2019-07-19 12:53 | disposition home or self-care (01) | DRG 455 ==
PROVIDERS: Admitting Provider Orthopaedic Surgery Orthopaedic Surgery of the Spine; PCP Internal Medicine; Visit Provider Orthopaedic Surgery Orthopaedic Surgery of the Spine
PROC: 0SG00AJ Fusion of Lumbar Vertebral Joint with Interbody Fusion Device, Posterior Approach, Anterior Column, Open Approach (ICD-10-PCS; principal; 2019-07-18 08:45)
DX: M47.27 Other spondylosis with radiculopathy, lumbosacral region (principal); M48.061 Spinal stenosis, lumbar region without neurogenic claudication; M96.1 Postlaminectomy syndrome, not elsewhere classified; I10 Essential (primary) hypertension; F17.210 Nicotine dependence, cigarettes, uncomplicated; M48.07 Spinal stenosis, lumbosacral region; M47.26 Other spondylosis with radiculopathy, lumbar region
CPT/HCPCS: 36415; 72100; 76000; 85014; 85018; 97116; 97162; 97165; 99406; C1776; C9290; J0131; J0330; J0690; J1100; J1170; J2060; J2250; J2405; J2704; J3010

== ENCOUNTER → 2019-08-30 11:06 | Outpatient (CLI) | payer OTHER, MEDICAID, SELFPAY ==
[2019-07-18 14:43] VITALS: BMI 29.5
--- NOTE | 2019-08-30 11:12 | DI.CT.S_ITS ---
PROCEDURE: CT LUMBAR SPINE WO CON INDICATIONS: Spinal stenosis, lumbar region TECHNIQUE: Noncontrast 3 mm thick sections acquired from the T12 level to the sacrum. Sagittal and coronal reformats were constructed. For radiation dose reduction, the following was used: automated exposure control. COMPARISON: [facility], [place], XR LUMBAR SPINE 2 OR 3 VIEWS, 08/30/2019, 10:04. FINDINGS: Image quality: Excellent. Bones: Postsurgical changes compatible with L4-L5 and L5-S1 TLIF noted. Orthopedic hardware is intact. No lucency is identified at the bone-hardware interface. There is normal bony alignment. No acute vertebral body compression fractures. No suspicious lytic or blastic bony lesions. Central spinal caliber is of normal overall caliber. T12-L1: Normal appearance. L1-L2: Normal appearance. L2-L3: Disc height is normal. Mild, diffuse disc bulge. Mild narrowing of the central canal. Mild bilateral neural foraminal narrowing. No definite neural compression. L3-L4: Disc height is normal. Moderate, diffuse disc bulge. Moderate narrowing of the central canal. Mild right and moderate left neural foraminal narrowing. No definite neural compression. L4-L5: Status post fusion. Moderate narrowing of the central canal. Mild bilateral neural foraminal narrowing. No definite neural compression. L5-S1: Status post fusion. Moderate facet hypertrophy. No central stenosis. Small, approximately 2.4 x 1.6 cm fluid collection noted in the left transforaminal surgical site which may impinge upon the left L5 nerve root. No central stenosis. Moderate right neural foraminal narrowing. Soft tissues: No retroperitoneal masses or hematomas. Visualized aorta is normal in caliber. IMPRESSION: 1. Status post L4-L5 and L5-S1 TLIF. 2. Small fluid collection at the left L5-S1 transforaminal surgical site which may impinge upon the exiting left L5 nerve root. Fluid collection may represent postsurgical hematoma/seroma or pseudomeningocele. Infected fluid collection cannot be excluded by imaging alone. 3. Multilevel degenerative disc disease. 4. L5-S1 facet arthropathy. 5. Moderate L3-L4 and L4-L5 central canal narrowing. 6. Mild right and moderate left L3-L4 neural foraminal narrowing. Moderate right L5-S1 neural foraminal narrowing. Mild bilateral L4-L5 neural foraminal narrowing. Dictated by: Miladis Negro MD, PhD on 08/30/2019 at 11:22 Approved by: Miladis Negro MD, PhD on 08/30/2019 at 11:31
== END ==
PROVIDERS: PCP Internal Medicine; Visit Provider Orthopaedic Surgery Orthopaedic Surgery of the Spine
DX: M48.061 Spinal stenosis, lumbar region without neurogenic claudication (principal); M48.07 Spinal stenosis, lumbosacral region; M51.36 Other intervertebral disc degeneration, lumbar region; M47.817 Spondylosis without myelopathy or radiculopathy, lumbosacral region; Z98.1 Arthrodesis status
CPT/HCPCS: 72131

== ENCOUNTER → 2020-12-09 06:31 | Outpatient (CLI) | payer OTHER, SELFPAY ==
[2019-07-18 14:43] VITALS: BMI 29.5
--- NOTE | 2020-12-09 | DI.MRI.S_ITS ---
PROCEDURE: MR SHOULDER LT WO CON INDICATIONS: Pain in left shoulder TECHNIQUE: Noncontrast oblique coronal T2 fast spin echo with fat saturation, oblique sagittal T1 spin echo and T2 fast spin echo with fat saturation, axial T1 spin echo and T2 fast spin echo with fat saturation through the shoulder. COMPARISON: None. FINDINGS: Image quality: Excellent. Rotator cuff: There is a high-grade articular sided tear of the supraspinatus tendon at the anterior footprint measuring 8 mm in anterior-posterior dimension superimposed on severe tendinosis. There is moderate infraspinatus tendinosis. The teres minor tendon is intact. There is severe subscapularis tendinosis with moderate grade partial intrasubstance tearing at the superior insertion. There is no significant rotator cuff muscle atrophy. Bones and bursae: No acute trabecular bone injury is seen. There are chronic traction cystic changes at the posterosuperior humeral head and the greater tuberosity at the rotator cuff tendon insertions. Mild degenerative spurring is seen in the glenoid rim. There is moderate acromioclavicular joint osteoarthrosis with subchondral cystic changes and edema, as well as inferior osteophyte formation that mildly impinges upon the dorsal supraspinatus muscle. There is a moderate glenohumeral effusion. Trace subacromial/subdeltoid bursal fluid is present. Capsule and soft tissues: There is a small nondisplaced tear of the superior labrum. The biceps long head tendon demonstrates moderate to high-grade partial longitudinal intrasubstance tearing. The biceps long head tendon is mildly medial subluxed, located within the distal subscapularis tendon. Prominent fluid in the biceps long head tendon sheath is compatible with superimposed tenosynovitis. There is partial effacement of the normal fat signal in the rotator interval. The inferior glenohumeral ligament is intact. IMPRESSION: 1. High-grade partial articular sided tearing of the supraspinatus tendon at the anterior footprint measuring 8 mm in anterior-posterior dimension superimposed on severe tendinosis. Moderate infraspinatus tendinosis is also seen. 2. Severe subscapularis tendinosis with moderate grade partial intrasubstance tearing at the superior insertion. 3. Moderate to severe partial longitudinal intrasubstance tearing of the biceps long head tendon with superimposed tenosynovitis and mild medial subluxation into the distal subscapularis tendon. 4. Small nondisplaced tear of the superior labrum. 5. Moderate acromioclavicular joint osteoarthrosis with osteophyte formation that mildly impinges on the dorsal supraspinatus muscle. 6. Moderate glenohumeral effusion. Dictated by: Kyle Reynolds M.D. on 12/09/2020 at 9:42 Approved by: Kyle Reynolds M.D. on 12/09/2020 at 9:55
== END ==
PROVIDERS: PCP Internal Medicine; Referring Provider Internal Medicine; Visit Provider Internal Medicine
DX: M25.512 Pain in left shoulder (principal); M25.412 Effusion, left shoulder; S46.812A Strain of other muscles, fascia and tendons at shoulder and upper arm level, left arm, initial encounter; S46.112A Strain of muscle, fascia and tendon of long head of biceps, left arm, initial encounter; S43.432A Superior glenoid labrum lesion of left shoulder, initial encounter; M19.012 Primary osteoarthritis, left shoulder
CPT/HCPCS: 73221